=== PATIENT | male | born 1965 | race Caucasian/White ===

== ENCOUNTER 2019-06-01 07:14 | Day surgery (SDC) | payer BC ==
[2019-04-13 18:09] VITALS: BMI 27.2
[~2019-06-01 07:14] MED LIST: LIDOCAINE 1% 20 ML VIAL (10MG/ML) FOR IV START INTRADERMA PRN
[2019-06-01 07:33] VITALS: TEMP 98
[2019-06-01] MEDS: LACTATED RINGERS 1,000 ML IV SCH ×2 (07:37→08:00)
[2019-06-01] MEDS ORDERED: PROPOFOL 10 MG/ML 20 ML VIAL IV ONE (07:56)
[2019-06-01] MEDS ORDERED: MIDAZOLAM 2 MG/2 ML VIAL ONE (07:56)
[2019-06-01] MEDS ORDERED: fentaNYL (PF) 50 MCG/ML 2 ML AMP ONE (07:56)
--- NOTE | 2019-06-01 08:15 | P.PCN ---
Date of Procedure: 06/01/19 Procedure(s) Performed: BRIEF HISTORY: Patient is a 54-year-old pleasant male scheduled for an elective colonoscopy as a part of screening for colorectal neoplasia. PROCEDURE PERFORMED: Colonoscopy with biopsy. PREOPERATIVE DIAGNOSIS: Screening for colon cancer. IV sedation per Anesthesia. PROCEDURE: After informed consent was obtained, the patient, was brought into the endoscopy unit. IV sedation was administered by Anesthesia under continuous monitoring. Digital rectal examination was normal. Initially the Olympus CF-160 flexible video colonoscope was then inserted in the rectum, gradually advanced into the cecum without any difficulty. Careful examination was performed as the scope was gradually being withdrawn. Ileocecal valve and the appendiceal orifice were visualized and appeared normal. Prep was excellent. Mucosa of the cecum, ascending colon appeared normal. There was a 3-4 mm sessile hepatic flexure polyp and a 3 mm sessile transverse colon polyp both of which were removed by cold biopsy. Rest of the, transverse colon, descending colon, sigmoid colon, and rectum appeared normal. Scattered diffuse diverticulosis seen. Retroflexion was performed in the rectum and no lesions were seen. The patient tolerated the procedure well. IMPRESSION: 3-4 mm sessile hepatic flexure polyp status post removal by cold biopsy 3 mm sessile transverse colon polyp status post removal by cold biopsy Scattered diffuse diverticulosis RECOMMENDATIONS: Findings of this examination were discussed with the patient as well as his family. He was advised to follow with the biopsy results. If the biopsy shows an adenoma, he can have a repeat colonoscopy in 5 years.
[2019-06-01 08:37] VITALS: BP 127/78; PULSE 61; RESP 18
== END 2019-06-01 08:47 | disposition home or self-care (01) ==
LOC: ORWHC2ENDO 07:14
PROVIDERS: ATTEND Internal Medicine Gastroenterology
DX: Z12.11 Encounter for screening for malignant neoplasm of colon (principal); D12.3 Benign neoplasm of transverse colon; K63.5 Polyp of colon; K57.90 Diverticulosis of intestine, part unspecified, without perforation or abscess without bleeding; I10 Essential (primary) hypertension; E78.5 Hyperlipidemia, unspecified; F17.200 Nicotine dependence, unspecified, uncomplicated; Z79.899 Other long term (current) drug therapy; Z88.6 Allergy status to analgesic agent
CPT/HCPCS: 88305; 45380; J2250; J3010; J2704

== ENCOUNTER → 2023-03-09 | Outpatient (CLI) | payer OTHER ==
--- NOTE | 2023-03-09 17:00 | CA ---
Exercise Stress Test Report Name: Nguyễn Odom Exam Date: 03/09/2023 09:01 Exam Location: [facility] Ht (in): 70 Wt (lb): 190 BSA: 2.04 Ordering Phys: Fracisco Fritz MD Referring Phys: Kim Wood PAC Technologist: SUNITA,, Age: 57 Gender: M : 1965 Procedure CPT: Indications: Z82.49 fam hx ischemic hert disease ICD-10 Codes: Patient History: Hypertension Medications: Meds past 24 hrs: Pretest Chest Pain: STRESS TEST Jadon Protocol Exercise Duration (min:sec): 13:[address] Depressions (mm): Angina Score: Lind Score: Resting HR (bpm): 60 Peak HR (bpm): 174 Resting BP (mmHg): 153 / 86 Peak BP (mmHg): 221 / 81 MPHR: 165 Target HR: 140 % MPHR: 105 METS: 14.1 Total Dose: Peak Dose: Atropine: Double Product: 28946 BP Response: Stress Termination: Reached target heart rate Stress Symptoms: No chest pain or symptoms Stress Summary: ECG ANALYSIS Resting ECG: Stress ECG: CONCLUSIONS Baseline EKG revealed a normal sinus rhythm without significant ST-T changes. Patient walked on standard Jadon protocol for 13 minutes 30 seconds and achieved a maximum heart rate of 168 bpm which is well above 85% of predicted maximal. There was no arrhythmia no angina no ST segment changes to indicate ischemia. This is a negative stress test with excellent exercise capacity Dr. Chelo Garrido MD (Electronically Signed) Final Date: 09 Mar 2023 16:59
== END | disposition home or self-care (01) ==
LOC: RADNMMAIN 08:23
PROVIDERS: ATTEND Family Medicine
DX: I10 Essential (primary) hypertension (principal); R07.9 Chest pain, unspecified; Z82.49 Family history of ischemic heart disease and other diseases of the circulatory system
CPT/HCPCS: 93017

== ENCOUNTER → 2024-12-14 | Outpatient (CLI) | payer OTHER ==
--- NOTE | 2024-12-14 20:14 | CTL ---
EXAMINATION TYPE: CT Low Dose Lung DATE OF EXAM: 12/14/2024 5:29 PM COMPARISON: None. SCREENING VISIT: Initial CT DIAGNOSTIC QUALITY: Satisfactory CLINICAL INDICATION: Male, 59 years old with history of Z12.2 SCREENING F17.210 NICOTINE DEPENDENCE, Current smoker, 1/2 ppd x 40 years no concerns, Lung cancer screening, History of tobacco use. TECHNIQUE: Low dose computed tomography scan was performed through the chest at 1 mm thick sections a nd reconstructed images in the coronal plane at 1 mm thick sections. Contrast used: mL of , (none if empty) Oral contrast used: (none if empty) CT DLP: 119.10 mGycm, Automated exposure control for dose reduction was used. CT CTDI: 3.5 mGy, Automated exposure control for dose reduction was used. FINDINGS: LUNG NODULES: None. LUNGS: COPD: Severity: None Fibrosis: Severity: None Lymph nodes: None Other findings: None RIGHT PLEURAL SPACE: Effusion: None Calcification: None Thickening: None Pneumothorax: None LEFT PLEURAL SPACE: Effusion: None Calcification: None Thickening: None Pneumothorax: None HEART: Other: Ascending thoracic aorta at the level the main pulmonary artery measures 3.6 cm. The main pul monary artery at the bifurcation measures 2.8 cm. Heart Size: Normal Coronary calcification: Mild Pericardial effusion: None OTHER FINDINGS: Upper abdomen: The scattered cysts within the liver. Bony thorax: Normal Supraclavicular region: Normal IMPRESSION: No suspicious changes to suggest primary or metastatic neoplasm FOLLOW UP CT CHEST RECOMMENDATION: Follow-up low-dose CT chest one year CT LUNG RAD: Lung-Rad 1 Negative [facility], Workstation: [id number], 12/14/2024 8:12 PM
== END | disposition home or self-care (01) ==
LOC: RADCTMAIN 16:49
PROVIDERS: ATTEND Family Medicine
DX: Z12.2 Encounter for screening for malignant neoplasm of respiratory organs (principal); F17.210 Nicotine dependence, cigarettes, uncomplicated
CPT/HCPCS: 71271

== ENCOUNTER → 2025-02-05 | Outpatient (CLI) | payer OTHER ==
--- NOTE | 2025-02-05 13:30 | MR ---
EXAMINATION TYPE: MR humerus RT wo con DATE OF EXAM: 02/05/2025 12:32 PM COMPARISON: CT abdomen pelvis most recent from CLINICAL INDICATION: Male, 59 years old with history of S46.101A INJURY OF MUSC/FASC/TEND LONG HD BIC EP, Right proximal humerus pain/tenderness, possible lifting injury. TECHNIQUE: Multiplanar, multisequence images of the right humerus were obtained without IV contrast. FINDINGS: There is mild to moderate effusion along the anterior subacromial/subdeltoid bursa. Unable to exclude a partial tear of the subscapularis tendon, for example, coronal STIR series 1001 i mage 12 and 13. There is heterogeneous signal of the anterior to mid supraspinatus tendon, possibly with some partial thickness tearing anteriorly. The large field of view makes assessment limited. There is also patien t motion and unconventional imaging planes which further limits assessment. Some fluid tracks along the bursa superior to the supraspinatus muscle belly. Some edema also tracks along the superior aspect of the subscapularis muscle. No definite retracted tear of the long head biceps tendon though we do visualize abnormal split tear extending within the bicipital groove along with mild tenosynovial fluid. No acute or healing fracture is seen. [id number] degenerative joint space narrowing at the acromioclavicular joint. Elbow excluded from view. IMPRESSION: 1. Limited by large field of view, patient motion, and unconventional coronal/sagittal imaging planes . 2. Suspect a partial tear of the subscapularis tendon. Suspect partial thickness tear of the anterior supraspinatus tendon as well. [id number] reactive effusion in the subacromial/subdeltoid bursa . 3. Large split tear involving the long head biceps tendon with associated tenosynovitis. No definite retracted tear though detailed assessment of the intracapsular portion is suboptimal due to the above limitations. Consider dedicated MRI of the shoulder for more detailed assessment is desired. [facility], Workstation: [id number], 02/05/2025 1:28 PM
== END | disposition home or self-care (01) ==
LOC: RADMRIMAIN 11:17
PROVIDERS: ATTEND Family Medicine
DX: S46.101A Unspecified injury of muscle, fascia and tendon of long head of biceps, right arm, initial encounter (principal); M65.921 Unspecified synovitis and tenosynovitis, right upper arm; X58.XXXA Exposure to other specified factors, initial encounter